=== PATIENT | female | born 1995 | race Two or more races ===

== ENCOUNTER → 2019-09-03 | Outpatient (CLI) | payer OTHER | END | disposition home or self-care (01) | LOC: PRENATAL 12:47 | DX: O35.3XX0 Maternal care for (suspected) damage to fetus from viral disease in mother, not applicable or unspecified (principal); O09.92 Supervision of high risk pregnancy, unspecified, second trimester; O09.212 Supervision of pregnancy with history of pre-term labor, second trimester; Z36.89 Encounter for other specified antenatal screening ==